=== PATIENT | male | born 1960 | race Caucasian/White ===

== ENCOUNTER → 2022-05-03 | Outpatient (REF) ==
--- NOTE | 2022-05-03 11:07 | Diagnostic Imaging Report ---
INDICATION: Injury, pain. FINDINGS: AP radiograph of the hand and oblique and lateral cone-down radiographs of the second finger performed. Finger is held with slight extension at the PIP and mild flexion at the DIP. No bony avulsion or other fracture pattern is found, and there is no dislocation. No acute articular irregularity. No gas or foreign body. IMPRESSION: No identifiable fracture; however, the finger held in extension proximally and flexion distally. No appreciable bony avulsion. Dictated by: Dictated on workstation # [id number]
== END | disposition home or self-care (01) ==
LOC: OCC 10:37
PROVIDERS: ATTEND Family Medicine
DX: Z01.818 Encounter for other preprocedural examination (principal)
CPT/HCPCS: 73140